=== PATIENT | male | born 1970 | race Caucasian/White ===

== ENCOUNTER 2017-02-13 12:00 | Inpatient (IN) | payer BC, OTHER ==
[~2017-02-13] VITALS: Ht 182.9 cm; Wt 63.5 kg
[2017-02-13 12:30] VITALS: BP 142/109
[2017-02-13] MEDS ORDERED: LOPERAMIDE HCL 2 MG CAPSULE PO PRN ×2 (12:30)
[2017-02-13] MEDS ORDERED: HYDROXYZINE PAMOATE 25 MG CAPSULE PO PRN (12:30)
[2017-02-13] MEDS ORDERED: DICYCLOMINE HCL 20 MG TABLET PO PRN (12:30)
[2017-02-13] MEDS ORDERED: MAGNESIUM HYDROXIDE 30 ML LIQUID UDC PO PRN (12:30)
[2017-02-13] MEDS ORDERED: ACETAMINOPHEN 325 MG TABLET PO PRN (12:30)
[2017-02-13] MEDS ORDERED: IBUPROFEN 400 MG TABLET PO PRN (12:30)
[2017-02-13] MEDS ORDERED: MAG HYDROX/AL HYDROX/SIMETH 30 ML LIQUID UDC PO PRN (12:30)
[2017-02-13] MEDS ORDERED: MIRALAX 17 GM POWD.PACK PO PRN (12:30)
[2017-02-13] MEDS ORDERED: diphenhydrAMINE 50 MG CAPSULE PO PRN (12:30)
[2017-02-13] MEDS ORDERED: LORAZEPAM 1 MG TABLET PO PRN ×2 (12:30)
[2017-02-13] MEDS ORDERED: ONDANSETRON ODT 4 MG TAB.RAPDIS SL PRN (12:30)
[2017-02-13] MEDS ORDERED: ONDANSETRON 4 MG/2 ML VIAL IM PRN (12:30)
[2017-02-13] MEDS ORDERED: CLONIDINE HCL 0.1 MG TABLET PO PRN (12:30)
[2017-02-13] MEDS ORDERED: LORAZEPAM 2 MG/1 ML VIAL IM PRN (12:30)
[2017-02-13] MEDS ORDERED: THIAMINE HCL 200 MG/2 ML VIAL IM ONE (12:30)
--- NOTE | 2017-02-13 12:30 | NUR ---
ADMISSION NOTE STATUS- FULL CODE ALLERGY-NKDA/NKFA HEIGHT-6"0 WEIGHT-140IBS PCP-KIARA RODRIGUEZ [facility] [place]- DEPRESSION, SEIZURE IN 1999 FROM LOW BLOOD SUGAR VITAL SIGNS-B/P 142/109,HR-105,SPO2-98%,RR-20,TEMP-97.9,PAIN-0/10 CIWA-19 Pt is a 46 year old male admitted to [facility] on 02/13/17 at 1230. Pt is under care of Dr. Keller for ETOH withdrawal. pt denies any SI/HI ideation. Pt denies being hospitalized in past 30 days. Pt denies chest pain and SOB. Pt brought Nexium with him. Pt reports taking Prozac 40 MG daily at home. Upon skin assessment Skin noted intact. Pt is alert awake oriented x4 and able to answer questions necessary for the admission process. Breathing normal respiration even unlabored. Pt reports smoking 1 pack a day, but trying to quit. Pt reported withdrawal s/s Anxiety, restlessness, unsteady gait, numbness, chills, nausea. SUBSTANCE ABUSE: ETOH(SCOTCH) A Fifth/daily, last used was on 02/12/17 of Fifth. Pt has been using at this rate for last 3 years. pt stated using at age 26. Pt has been oriented to the room and the unit. Pt currently on 1:1 for unsteady gait. All needs have been met. Safety measures in place, Call light within reach. Will cont to monitor.
[2017-02-13] MEDS ORDERED: ESOM20CA PO (13:18)
[2017-02-13] MEDS: LORAZEPAM 1 MG TABLET PO SCH ×3 (13:18→21:14)
--- NOTE | 2017-02-13 13:18 | NUR ---
PRN ZOFRAN Pt c/o of nausea, No emesis, non pharmacological intervention ineffective. Pt medicated with PRN Zofran 4mg SL as ordered. Will cont to monitor and reassess the pt.
[2017-02-13 13:44] LABS: BASOPHILS % (AUTO) 0.4 % (0.0-2.0); EOSINOPHILS # (AUTO) 0.1 K/uL (0.0-0.7); EOSINOPHILS % (AUTO) 0.7 % (0.0-7.0); HEMATOCRIT 44.7 % (36.7-47.1); HEMOGLOBIN 15.5 g/dL (12.5-16.3); LYMPHOCYTES # (AUTO) 0.9 K/uL (20.0-40.0); LYMPHOCYTES % (AUTO) 10.7 % (20.5-51.5); MEAN CORPUSCULAR HEMOGLOBIN 35.3 uug (23.8-33.4); MEAN CORPUSCULAR HGB CONC 35 g/dL (32.5-36.3); MEAN CORPUSCULAR VOLUME 101.8 fL (73.0-96.2); MONOCYTES # (AUTO) 0.8 K/uL (2.0-10.0); MONOCYTES % (AUTO) 9.3 % (0.0-11.0); NEUTROPHILS # (AUTO) 6.3 K/uL (1.8-8.9); NEUTROPHILS % (AUTO) 78.9 % (38.5-71.5); PLATELET COUNT (AUTO) 119 K/uL (152-348); RED BLOOD CELL COUNT(AUTO) 4.39 MIL/uL (4.06-5.63); RED CELL DISTRIBUTION WIDTH 13.2 % (12.1-16.2); WHITE BLOOD COUNT (AUTO) 8.1 K/uL (3.6-10.2)
[2017-02-13 13:47] LABS: ALANINE AMINOTRANSFERASE 52 U/L (16-63); ALBUMIN 4.3 g/dL (3.4-5.0); ALKALINE PHOSPHATASE 61 U/L (50-136); AMYLASE 62 U/L (25-115); ASPARTATE AMINOTRANSFERASE 69 U/L (15-37); BILIRUBIN,TOTAL 1.3 mg/dL (0.2-1.0); CALCIUM 9.5 mg/dL (8.5-10.1); CARBON DIOXIDE 27 mmol/L (21-32); CHLORIDE 95 mmol/L (98-107); CREATININE 0.7 mg/dL (0.6-1.3); GFR 121 mL/min (>60); GLUCOSE 98 mg/dL (74-106); LIPASE 350 U/L (73-393); MAGNESIUM 1.6 mg/dL (1.8-2.4); POTASSIUM 3.7 mmol/L (3.5-5.1); SODIUM SERUM 134 mmol/L (136-145); TOTAL PROTEIN, SERUM 7.9 g/dL (6.4-8.2); UREA NITROGEN, BLOOD 8 mg/dL (7-18)
--- NOTE | 2017-02-13 13:48 | NUR ---
REASSESSMENT Pt reported medication effective nausea improved.
[2017-02-13 13:57] LABS: ETHANOL < 3 MG/DL (0-0)
[2017-02-13 13:59] LABS: *AMPHETAMINE, URINE NEGATIVE (NEGATIVE); *BARBITURATE, URINE NEGATIVE (NEGATIVE); *CANNABINOID, URINE NEGATIVE (NEGATIVE); *COCCAINE, URINE NEGATIVE (NEGATIVE); *OPIATE, URINE NEGATIVE (NEGATIVE); *PHENCYCLIDINE SCREEN,URINE NEGATIVE (NEGATIVE)
[2017-02-13] MEDS ORDERED: MAGNESIUM OXIDE 400 MG TABLET PO ONE (14:00)
[2017-02-13 14:14] LABS: HIV-1 p24 ANTIGEN NON REACTIVE (NONREACTIVE); HIV-1/2 ANTIBODY NON REACTIVE (NONREACTIVE)
[2017-02-13 14:16] LABS: FOLIC ACID 17.4 NG/ML (8.6-58.9)
[2017-02-13 15:21] LABS: THYROID STIMULATING HORMONE 2.333 mIU/mL (0.358-3.740)
[2017-02-13 16:00] VITALS: BP 125/91
--- NOTE | 2017-02-13 19:19 | NUR ---
END OF SHIFT NOTE Gave report to night nurse, 46 year old male admitted for ETOH withdrawal. Full code, NKA/Regular diet. Pt with PMH of depression. Pt reported using of ETOH(SCOTCH) A Fifth/ daily, last used was on 02/12/17 of Fifth. Pt has been using at this rate for last 3 years. pt stated using at age 26. Pt currently on 1:1 for unsteady gait. Pt received PRN Zofran for Nausea effective. Vital signs remained stable All needs have been met. Safety measures in place, Call light within reach. Pt endorsed to night nurse in stable condition.
--- NOTE | 2017-02-13 19:30 | NUR ---
START OF SHIFT-- Pt is a 46 year old male admitted for ETOH withdrawal.Received in room,pleasant on approach.A/O X 4. Full code, NKA/Regular diet. Pt with PMH of depression.Skin is intact;breathing even and non labored. Pt currently on 1:1 for unsteady gait. Vital signs have been stable All needs have been met. Last CIWA was 4.Safety measures in place, Call light within reach. Will be monitored.
[2017-02-13 20:00] VITALS: BP 131/93
[2017-02-14] VITALS: BP 121/94
[2017-02-14 04:00] VITALS: BP 122/89
--- NOTE | 2017-02-14 06:39 | NUR ---
END OF SHIFT- Pt is a 46 year old male admitted for ETOH withdrawal.A/O X 4. Full code, NKA/Regular diet. Pt with PMH of depression.Skin is intact;breathing even and non labored. Pt currently on 1:1 for unsteady gait. Vital signs have been stable.No PRN meds given last night;pt slept 7 hrs,fluid intake was 1,000 mls voided x 1 . All needs have been met. Last CIWA was 2.Safety measures in place, Call light within reach. Will be monitored.
--- NOTE | 2017-02-14 07:00 | NUR ---
Start of Shift Notes: Received patient in his room. Alert and oriented x 4. Verbally responsive. Able to make her needs known. Respirations even and unlabored. No SOB noted. Skin warm and dry to touch. Abdomen soft and non-distended with (+) BS in all 4 quadrants. No complains of N/V/D or abdominal discomfort noted. Voids independently. Bladder non-distended. Ambulatory ad juan josé with steady gait. Patient is a 46 year old male admitted for ETOH dependence who was placed on a 5-day Ativan taper as ordered. No adverse reactions noted. Has past medical hx of depression and seizures related to low blood glucose level. On 1:1 due to unsteady gait. FULL CODE. Regular diet. NKA. On fall and seizure precautions. Educated patient on his current plano of care for the day and his medication regimen. All needs met and attended. Safety precautions in place. Will continue to monitor closely.
[2017-02-14 08:00] VITALS: BP 127/81
[2017-02-14 08:13] LABS: HCV AB <0.1 s/co ratio (0.0-0.9); HEPATITIS B CORE AB, IgM Negative (Negative); HEPATITIS B SURFACE AG Negative (Negative)
[2017-02-14] MEDS: FOLIC ACID 1 MG TABLET PO SCH (08:46)
[2017-02-14] MEDS: MULTIVITAMINS,THERAPEUTIC TABLET PO SCH (08:46)
[2017-02-14] MEDS: LORAZEPAM 1 MG TABLET PO SCH ×3 (08:46→20:37)
[2017-02-14] MEDS: FLUOXETINE HCL 20 MG CAPSULE PO SCH (08:46)
[2017-02-14] MEDS: THIAMINE HCL 100 MG TABLET PO SCH (08:46)
--- NOTE | 2017-02-14 08:46 | NUR ---
Mylanta 30cc PO given: Patient noted with complain of GI upset related to acid reflux. Tolerating oral intake. Medicated patient with Mylanta 30 cc PO as ordered. Will monitor for effectiveness.
[2017-02-14] MEDS ORDERED: TUBERCULIN,PURIF.PROT.DERIV. 5 TU/0.1 ML TEST ID ONE (09:00)
[2017-02-14] MEDS ORDERED: FLUO40CA8 PO (09:14)
--- NOTE | 2017-02-14 09:46 | NUR ---
Re-assessment: Per patient, PRN Mylanta was effective in reducing GI upset.
[2017-02-14 12:00] VITALS: BP 126/94
[2017-02-14] MEDS ORDERED: LORAZEPAM 1 MG TABLET PO ONE (12:30)
--- NOTE | 2017-02-14 12:30 | NUR ---
Ativan 1 mg PO x 1 dose given: Orders received from Dr. Keller to administer extra dose of Ativan 1 mg PO at this time due to gross tremors and sweating. HALLIEWA 8.
--- NOTE | 2017-02-14 13:30 | NUR ---
Re-assessment: x1 Ativan order: CIWA 6. Patient noted with less tremors to BUE noted and less sweating.
--- NOTE | 2017-02-14 13:45 | NUR ---
PT Eval: Orders received from MD to start patient on PT therapy due to unsteady gait and poor safety awareness.
--- NOTE | 2017-02-14 14:00 | NUR ---
PT eval: Patient was seen and examined by PT department at this time.
[2017-02-14] MEDS: GABAPENTIN 300 MG CAPSULE PO SCH ×2 (14:18→20:37)
--- NOTE | 2017-02-14 14:19 | NUR ---
New Orders: Patient was started on Gabapentin as ordered for tremors and anxiety. Patient education provided.
[2017-02-14 16:00] VITALS: BP 122/90
--- NOTE | 2017-02-14 18:47 | NUR ---
End of Shift Notes: Patient is a 46 year old male admitted on 02/13/2017 for ETOH dependence who was placed on a 5-day Ativan taper as ordered. No adverse reactions noted. Patient is tolerating taper well. This is patient's first day of his taper. Has past medical hx of depression and seizures related to low blood glucose level. VS monitored closely q 4 hours. No significant abnormalities noted. Withdrawal symptoms were closely monitored. Patient presented with severe gross tremors and sweats. On 1:1 due to gross tremors and unsteady gait. Initial CIWA 11. Last CIWA 5. Per patient, Ativan has been helping him with his withdrawal symptoms. Oral fluids encouraged. Safety precautions in place. Tolerating oral intake well. All needs met and attended. Will continue to monitor closely.
--- NOTE | 2017-02-14 19:55 | NUR ---
START OF SHIFT Received report from day shift nurse. Pt is in his room lying in bed. He is a 46 yo male admitted to [facility] on 02/13 for ETOH Dependence. NKA, full code, regular diet. Pt is A&O x4 and ambulatory with an unsteady gait. He requires assistance ambulating and is ordered a 1:1 for safety. Wheelchair is available as needed. Pt has a PMH of seizure x1 r/t low blood glucose and depression. On admission pt reported drinking ETOH 750mL/day for 31 years. He started a 5 day Ativan taper on 02/13. Pt has moist skin, moderate full body tremors, and an unsteady gait. Ativan taper due tonight. He is cooperative with treatment. Fall and seizure precautions in place. Bed is down with call light in reach.
[2017-02-14 20:00] VITALS: BP 137/96
[2017-02-14] MEDS ORDERED: LORAZEPAM 1 MG TABLET PO PRN ×2 (20:30)
[2017-02-15] VITALS (8 sets, daily range): BP systolic 118–132; BP diastolic 86–102
--- NOTE | 2017-02-15 07:08 | NUR ---
END OF SHIFT Report provided to day shift nurse. Pt is lying in bed watching TV. He is a 46 yo male admitted to [facility] on 02/13 for ETOH Dependence. NKA, full code, regular diet. Pt is A&O x4 and ambulatory with assistance. 1:[address] for safety r/t unsteady gait with a wheelchair available as needed. Pt has a PMH of seizure x1 r/t low blood glucose and depression. On admission pt reported drinking ETOH 750mL/day for 31 years. He started a 5 day Ativan taper on 02/13. Pt has full body tremors. No PRN medications administered. Last CIWA 3. He drank 200mL and slept for 8 hours. Fall and seizure precautions in place. Bed is down with call light in reach.
[2017-02-15 07:16] LABS: BASOPHILS % (AUTO) 0.2 % (0.0-2.0); EOSINOPHILS # (AUTO) 0.2 K/uL (0.0-0.7); EOSINOPHILS % (AUTO) 2.9 % (0.0-7.0); HEMATOCRIT 46.3 % (36.7-47.1); HEMOGLOBIN 16.3 g/dL (12.5-16.3); LYMPHOCYTES % (AUTO) 13.6 % (20.5-51.5); MEAN CORPUSCULAR HEMOGLOBIN 35.8 uug (23.8-33.4); MEAN CORPUSCULAR HGB CONC 35 g/dL (32.5-36.3); MEAN CORPUSCULAR VOLUME 101.6 fL (73.0-96.2); MONOCYTES # (AUTO) 0.6 K/uL (2.0-10.0); MONOCYTES % (AUTO) 7.7 % (0.0-11.0); NEUTROPHILS # (AUTO) 5.9 K/uL (1.8-8.9); NEUTROPHILS % (AUTO) 75.6 % (38.5-71.5); PLATELET COUNT (AUTO) 95 K/uL (152-348); RED BLOOD CELL COUNT(AUTO) 4.55 MIL/uL (4.06-5.63); RED CELL DISTRIBUTION WIDTH 13.1 % (12.1-16.2); WHITE BLOOD COUNT (AUTO) 7.7 K/uL (3.6-10.2)
--- NOTE | 2017-02-15 07:41 | NUR ---
START OF SHIFT NOTE Received report from night nurse, 46 yo male admitted to [facility] on 02/13 for ETOH Dependence. NKA, full code, regular diet. Pt has a PMH of seizure x1 r/t low blood glucose and depression. Pt cont with 1:1 for safety. Pt reported drinking ETOH 750mL/day for 31 years. Pt cont with a 5 day Ativan taper on 02/13. No PRN's given per night nurse, Slept for 8 hours, Last CIWA-3. Currently pt is resting in his room in stable condition. pt still noted with full body tremors. Pt denies any pain at this time. Educate the pt current plan of the day and medications regimen with good verbal understanding Fall and seizure precautions in place, Call light within reach.
[2017-02-15 07:52] LABS: ALBUMIN 4.1 g/dL (3.4-5.0); BILIRUBIN,DIRECT 0.3 mg/dL (0.0-0.2); CREATININE 0.7 mg/dL (0.6-1.3); MAGNESIUM 2.1 mg/dL (1.8-2.4); PHOSPHOROUS 4.7 mg/dL (2.5-4.9); POTASSIUM 4.2 mmol/L (3.5-5.1); TOTAL PROTEIN, SERUM 7.7 g/dL (6.4-8.2)
[2017-02-15] MEDS: MULTIVITAMINS,THERAPEUTIC TABLET PO SCH (08:26)
[2017-02-15] MEDS: GABAPENTIN 300 MG CAPSULE PO SCH ×2 (08:26→14:23)
[2017-02-15] MEDS: LORAZEPAM 1 MG TABLET PO SCH ×4 (08:26→20:21)
[2017-02-15] MEDS: THIAMINE HCL 100 MG TABLET PO SCH (08:26)
[2017-02-15] MEDS: FOLIC ACID 1 MG TABLET PO SCH (08:26)
[2017-02-15] MEDS: FLUOXETINE HCL 20 MG CAPSULE PO SCH (08:27)
[2017-02-15] MEDS: NEXIUM 22.3 MG PO SCH (08:31)
--- NOTE | 2017-02-15 08:33 | NUR ---
ADMINISTERED PNEUMONIA VACCINE Pneumonia vaccine given as ordered, on right deltoid. Injection site clean and dry no s/s of bleeding no swelling noted. Safety measures in place, Call light within reach. Cont with 1:1.
[2017-02-15] MEDS ORDERED: PNEUMOCOCCAL 23-VAL P-SAC VAC 0.5 ML VIAL IM ONE (09:00)
[2017-02-15 09:19] LABS: BAND % (MANUAL) 1 % (0-10); LYMPHOCYTES % (MANUAL) 8 % (20-40); NEUTROPHILS % (MANUAL) 82 % (42-75)
[2017-02-15 09:20] LABS: EOSINOPHILS % (MANUAL) 2 % (0-8); MONOCYTES % (MANUAL) 7 % (2-10)
[2017-02-15 09:21] LABS: PLATELET ESTIMATE DECREASED
[2017-02-15 09:27] LABS: TOXIC GRANULATION 1+
[2017-02-15] MEDS ORDERED: LORAZEPAM 1 MG TABLET PO ONE (13:00)
--- NOTE | 2017-02-15 13:00 | NUR ---
X1 DOSE OF ATIVAN Pt's complaining of anxiety, JORDI noted 8. Seen by MD with new order for x1 dose of Ativan 1 mg. Administered medication as ordered. Will cont o monitor and reassess the pt. Pt cont with 1:1 sitter for unsteady gait. All safety measures in place, Call light within reach.
--- NOTE | 2017-02-15 13:30 | NUR ---
PT VISIT Pt is compliant with physical therapy order and walks with assistance. Pt remains safe.
--- NOTE | 2017-02-15 14:00 | NUR ---
REASSESSMENT Upon reassessment pt verbalized medication effective, anxiety decreased, CIWA noted 3.
--- NOTE | 2017-02-15 18:44 | NUR ---
END OF SHIFT NOTE Gave report to night nurse, 46 year old male admitted for ETOH withdrawal. Full code, NKA/Regular diet. Pt with PMH of depression. Pt reported using of ETOH(SCOTCH) A Fifth/ daily, last used was on 02/12/17 of Fifth. Pt has been using at this rate for last 3 years. pt stated using at age 26. Pt currently on 1:1 for unsteady gait. Pt cont with 5 days Ativan taper tolerating well no ASE noted. Skin intact warm and dry to touch. Pt was given PNA vaccine on right deltoid. Pt also received one time dose of Ativan for anxiety CIWA-3. Vital signs were stable during shift. Pt's total intake 2355ml, voided x4, Last CIWA-2. Pt has physical therapy and walk with PT. All needs have been met. Safety measures in place, Call light within reach. Will endorse pt to night nurse in stable condition.
--- NOTE | 2017-02-15 19:55 | NUR ---
START OF SHIFT Received report from day shift nurse. Pt is in his room watching TV. He is a [address] [facility] on 02/13 for ETOH Dependence. NKA, full code, regular diet. Pt is A&O x4 and ambulatory with an unsteady gait. He is ordered a 1:1 for safety. Pt has a PMH of seizure x1 r/t low blood glucose and depression. Upon admission pt admitted to drinking ETOH 750mL/day for 31 years. Pt is ordered a 5 day Ativan taper that started on 02/13. He is being seen by physical therapy for unsteady gait. Pt has moderate full body tremors and moist skin. Ativan taper due tonight. Fall and seizure precautions in place. Bed is down with call light in reach.
[2017-02-15] MEDS ORDERED: GABAPENTIN 300 MG CAPSULE PO SCH (21:00)
[2017-02-16] VITALS (7 sets, daily range): BP systolic 106–135; BP diastolic 79–106
--- NOTE | 2017-02-16 | NUR ---
0000 CIWA deferred CIWA is ordered Q4HWA.
[2017-02-16] MEDS ORDERED: LORAZEPAM 1 MG TABLET PO ONE (03:00)
--- NOTE | 2017-02-16 03:05 | NUR ---
Communication/One Time Ativan Pt woke up and reports, "I'm feeling a bit disoriented". He is oriented to person, place, and the year but unable to recall the month or situation. Pt remains cooperative. He was reoriented. Full body tremors have increased since before going to sleep. B/P 134/106 and HR 98. CIWA score is 11. Contacted Dr. Keller. [facility] received and [facility] 1:[address] for safety.
--- NOTE | 2017-02-16 04:05 | NUR ---
One time Ativan reassessment Pt is lying in bed resting with eyes closed. Respirations even and unlabored. Pt was woken for vital signs. B/P 106/79 and HR 94. He reports "I feel a little better but I'm still unclear how all this came about". Reoriented patient. Tremors have decreased but are still present and he has mild sweating. CIWA score 7. 1:1 ADMIN ASSISTANT at the bedside. Safety measures in place.
--- NOTE | 2017-02-16 07:05 | NUR ---
END OF SHIFT Report provided to day shift nurse. Pt is lying in bed resting. He is a 46 yo male admitted to [facility] on 02/13 for ETOH Dependence. NKA, full code, regular diet. Pt is A&O x4 and ambulatory with an unsteady gait. He is ordered a 1:1 for safety. Pt has a PMH of seizure x1 r/t low blood glucose and depression. Upon admission pt admitted to drinking ETOH 750mL/day for 31 years. Pt is ordered a 5 day Ativan taper that started on 02/13. He is being seen by physical therapy for unsteady gait. Pt woke up in the night confused and disoriented with full body tremors. Dr. Keller made aware. Ativan One time administered. Pt was able to go back to sleep but continues to have mild confusion when he wakes up. He remained in the bed throughout the shift and only gets up to use the restroom with assistance. Last CIWA was 7. He drank 500mL and slept for 6 hours. Fall and seizure precautions in place. Bed is down with call light in reach.
--- NOTE | 2017-02-16 07:06 | NUR ---
Start of Shift Notes: Received patient in his room. Alert and oriented x 4. Verbally responsive. Able to make his needs known. Respirations even and unlabored. No SOB noted. Skin warm and dry to touch. Abdomen soft and non-distended with (+) BS in all 4 quadrants. No complains of N/V/D or abdominal discomfort noted. Voids independently. Bladder non-distended. Ambulatory ad juan josé with steady gait. Patient is a 46 year old male admitted for ETOH dependence who was placed on a 5-day Ativan taper as ordered. No adverse reactions noted. Has past medical hx of depression and seizures related to low blood glucose level. On 1:1 due to unsteady gait. FULL CODE. Regular diet. NKA. On fall and seizure precautions. Educated patient on his current plano of care for the day and his medication regimen. Encouraged oral fluid intake and encouraged group participation to learn new skills to prevent relapse. All needs met and attended. Safety precautions in place. Will continue to monitor closely.
[2017-02-16 07:48] LABS: BASOPHILS % (AUTO) 0.2 % (0.0-2.0); EOSINOPHILS # (AUTO) 0.2 K/uL (0.0-0.7); EOSINOPHILS % (AUTO) 3.3 % (0.0-7.0); HEMATOCRIT 44.5 % (36.7-47.1); HEMOGLOBIN 15.3 g/dL (12.5-16.3); LYMPHOCYTES # (AUTO) 0.7 K/uL (20.0-40.0); LYMPHOCYTES % (AUTO) 10.2 % (20.5-51.5); MEAN CORPUSCULAR HEMOGLOBIN 35.1 uug (23.8-33.4); MEAN CORPUSCULAR HGB CONC 34 g/dL (32.5-36.3); MONOCYTES # (AUTO) 0.5 K/uL (2.0-10.0); MONOCYTES % (AUTO) 6.9 % (0.0-11.0); NEUTROPHILS # (AUTO) 5.7 K/uL (1.8-8.9); NEUTROPHILS % (AUTO) 79.4 % (38.5-71.5); PLATELET COUNT (AUTO) 92 K/uL (152-348); RED BLOOD CELL COUNT(AUTO) 4.36 MIL/uL (4.06-5.63); RED CELL DISTRIBUTION WIDTH 13.1 % (12.1-16.2); WHITE BLOOD COUNT (AUTO) 7.1 K/uL (3.6-10.2)
[2017-02-16 08:10] LABS: ALANINE AMINOTRANSFERASE 134 U/L (16-63); ALBUMIN 3.8 g/dL (3.4-5.0); ALKALINE PHOSPHATASE 59 U/L (50-136); ASPARTATE AMINOTRANSFERASE 228 U/L (15-37); BILIRUBIN,DIRECT 0.2 mg/dL (0.0-0.2); CALCIUM 9.5 mg/dL (8.5-10.1); CARBON DIOXIDE 30 mmol/L (21-32); CHLORIDE 101 mmol/L (98-107); CREATININE 0.6 mg/dL (0.6-1.3); GFR > 130 mL/min (>60); GLUCOSE 99 mg/dL (74-106); MAGNESIUM 1.9 mg/dL (1.8-2.4); PHOSPHOROUS 4.5 mg/dL (2.5-4.9); POTASSIUM 4.2 mmol/L (3.5-5.1); SODIUM SERUM 138 mmol/L (136-145); TOTAL PROTEIN, SERUM 7.5 g/dL (6.4-8.2); UREA NITROGEN, BLOOD 6 mg/dL (7-18)
[2017-02-16] MEDS: THIAMINE HCL 100 MG TABLET PO SCH (08:21)
[2017-02-16] MEDS: MULTIVITAMINS,THERAPEUTIC TABLET PO SCH (08:21)
[2017-02-16] MEDS: FLUOXETINE HCL 20 MG CAPSULE PO SCH (08:21)
[2017-02-16] MEDS: LORAZEPAM 1 MG TABLET PO SCH ×3 (08:21→20:06)
[2017-02-16] MEDS: FOLIC ACID 1 MG TABLET PO SCH (08:21)
[2017-02-16] MEDS: GABAPENTIN 300 MG CAPSULE PO SCH ×3 (08:21→20:06)
[2017-02-16] MEDS: NEXIUM 22.3 MG PO SCH (08:22)
--- NOTE | 2017-02-16 11:00 | NUR ---
PT: Patient was seen by PT. Compliant with therapy. Safety precautions in place. PT recommends for patient to continue to be on 1:1 due to unsteady gait and poor safety awareness. Patient still requires SBA with walking.
--- NOTE | 2017-02-16 18:45 | NUR ---
End of Shift Notes: Patient is a 46 year old male admitted on 02/13/2017 for ETOH dependence who was placed on a 5-day Ativan taper as ordered. No adverse reactions noted. Patient is tolerating taper well. Has past medical hx of depression and seizures related to low blood glucose level. VS monitored closely q 4 hours. No significant abnormalities noted. Withdrawal symptoms were closely monitored. Patient presented with s gross tremors and sweats. No changes in LOC noted. On PT as ordered. On 1:1 due to gross tremors and unsteady gait. Initial CIWA 7. Last CIWA 5. Per patient, Ativan has been helping him with his withdrawal symptoms. CT scan of the brain without contrast was done today. Results pending. Oral fluids encouraged. Safety precautions in place. Tolerating oral intake well. All needs met and attended. Will continue to monitor closely.
--- NOTE | 2017-02-16 20:00 | NUR ---
START OF SHIFT NOTE RECEIVED PATIENT IN THE ROOM WITH 1:1 DUE TO UNSTEADY GAIT. PATIENT ALERT AND ORIENTED X 4. RESPIRATION EVEN AND UNLABORED. PATIENT NOTED WITH TREMORS, NO N/V. PATIENT ENCOURAGED TO ATTEND GROUPS. PATIENT WITH GOOD APPETITE AND HAD BM TODAY. DENIES ANY PAIN . RECEIVED REPORT FROM DAY SHIFT NURSE. PATIENT DID REQUIRE ANY PRN MEDICATION DURING THE DAY. PATIENT USES W/C AND WALKER TO AMBULATE. CT SCAN OF THE BRAIN WITHOUT CONTRAST WAS DONE TODAY AND RESULT STILL PENDING. SAFETY MEASURES IN PLACE. CALL LIGHT IN REACH. WILL CONTINUE TO MONITOR.
[2017-02-17] VITALS: BP 124/90
[2017-02-17 04:00] VITALS: BP 124/91
--- NOTE | 2017-02-17 07:15 | NUR ---
END OF SHIFT NOTE MONITORED PATIENT THROUGHOUT SHIFT. PATIENT ALERT AND ORIENTED X 4. RESPIRATION EVEN AND UNLABORED. PATIENT CONTINUE ON 1:1 DUE TO UNSTEADY GAIT. PATIENT USES W/C AND WALKER TO AMBULATE. PATIENT REPORTS ANXIETY ,NOTED TREMORS , NO N/V DURING SHIFT. DENIES ANY PAIN. PATIENT COMPLIANT WITH MEDICATIONS BUT REFUSED TO GO TO GROUPS OR MEETINGS. CONTINUE TO ENCOURAGE. PATIENT DID NOT REQUIRE ANY PRN MEDICATION DURING SHIFT. SAFETY MEASURES IN PLACE. CALL LIGHT IN REACH. SLEPT 7 HOURS. FLUID INTAKE OF 300 ML. VOIDED X 4 AND BM X 1. CONTINUE ON ATIVAN TAPER ORDERED , NO ADVERSE REACTION AND TOLERATED WELL. PATIENT LAST CIWA 2. CT SCAN RESULT STILL PENDING . ENDORSE TO NEXT SHIFT.
[2017-02-17 08:00] VITALS: BP 122/93
[2017-02-17 08:08] LABS: BASOPHILS % (AUTO) 0.3 % (0.0-2.0); EOSINOPHILS # (AUTO) 0.3 K/uL (0.0-0.7); EOSINOPHILS % (AUTO) 3.9 % (0.0-7.0); HEMATOCRIT 43.5 % (36.7-47.1); LYMPHOCYTES # (AUTO) 1.1 K/uL (20.0-40.0); LYMPHOCYTES % (AUTO) 13.1 % (20.5-51.5); MEAN CORPUSCULAR HEMOGLOBIN 35.3 uug (23.8-33.4); MEAN CORPUSCULAR HGB CONC 35 g/dL (32.5-36.3); MEAN CORPUSCULAR VOLUME 102.3 fL (73.0-96.2); MONOCYTES # (AUTO) 0.9 K/uL (2.0-10.0); MONOCYTES % (AUTO) 10.3 % (0.0-11.0); NEUTROPHILS # (AUTO) 6.3 K/uL (1.8-8.9); NEUTROPHILS % (AUTO) 72.4 % (38.5-71.5); PLATELET COUNT (AUTO) 118 K/uL (152-348); RED BLOOD CELL COUNT(AUTO) 4.26 MIL/uL (4.06-5.63); RED CELL DISTRIBUTION WIDTH 13.2 % (12.1-16.2); WHITE BLOOD COUNT (AUTO) 8.6 K/uL (3.6-10.2)
[2017-02-17 08:20] LABS: ALBUMIN 3.7 g/dL (3.4-5.0); BILIRUBIN,DIRECT 0.2 mg/dL (0.0-0.2); BILIRUBIN,TOTAL 0.7 mg/dL (0.2-1.0); CALCIUM 9.6 mg/dL (8.5-10.1); CREATININE 0.7 mg/dL (0.6-1.3); MAGNESIUM 1.9 mg/dL (1.8-2.4); PHOSPHOROUS 4.2 mg/dL (2.5-4.9); POTASSIUM 4.2 mmol/L (3.5-5.1); TOTAL PROTEIN, SERUM 7.4 g/dL (6.4-8.2)
[2017-02-17] MEDS: MULTIVITAMINS,THERAPEUTIC TABLET PO SCH (09:10)
[2017-02-17] MEDS: FOLIC ACID 1 MG TABLET PO SCH (09:10)
[2017-02-17] MEDS: LORAZEPAM 1 MG TABLET PO SCH ×2 (09:10→21:20)
[2017-02-17] MEDS: GABAPENTIN 300 MG CAPSULE PO SCH ×3 (09:10→21:21)
[2017-02-17] MEDS: FLUOXETINE HCL 20 MG CAPSULE PO SCH (09:10)
[2017-02-17] MEDS: THIAMINE HCL 100 MG TABLET PO SCH (09:10)
[2017-02-17] MEDS: NEXIUM 22.3 MG PO SCH (09:14)
--- NOTE | 2017-02-17 11:50 | NUR ---
PT: Patient was seen by PT. Compliant with therapy. Safety precautions in place. PT recommends for patient to continue to be on 1:1 at this time due to unsteady gait, tremors and poor safety awareness. Patient still requires SBA with walking, however able to ambulate with FWW.
[2017-02-17 12:00] VITALS: BP 121/66
[2017-02-17 16:00] VITALS: BP 126/96
--- NOTE | 2017-02-17 18:47 | NUR ---
End of Shift Notes: Patient is a 46 year old male admitted on 02/13/2017 for ETOH dependence who was placed on a 5-day Ativan taper as ordered. No adverse reactions noted. Patient is tolerating taper well. Has past medical hx of depression and seizures related to low blood glucose level. VS monitored closely q 4 hours. No significant abnormalities noted. Withdrawal symptoms were closely monitored. Patient presented with gross tremors and sweats. No changes in LOC noted. On PT as ordered. On 1:1 due to gross tremors and unsteady gait. Able to ambulate with FWW with SBA. Initial CIWA 6. Last CIWA 4. Per patient, Ativan has been helping him with his withdrawal symptoms. Oral fluids encouraged. Safety precautions in place. Tolerating oral intake well. All needs met and attended. Will continue to monitor closely.
--- NOTE | 2017-02-17 19:30 | NUR ---
START OF SHIFT NOTE : Pt. is 46 years old male, admitted for ETOH dependence who was placed on a 5-day Ativan taper on 02/14/2017. No adverse reactions noted. Has past medical hx of depression and seizures related to low blood glucose level. On 1:1 due to unsteady gait. FULL CODE. Regular diet. NKA. On fall and seizure precautions. Alert and oriented x 4. Verbally responsive. Able to make his needs known. Respirations even and unlabored. No SOB noted. Skin warm and dry to touch. Abdomen soft and non-distended with (+) BS in all 4 quadrants. No complains of N/V/D or abdominal discomfort noted. Voids independently. Encouraged oral fluid intake and encouraged group participation to learn new skills to prevent relapse Safety measures in place : bed on lowest position with side rails x2 up for safety, call light within reach. Will continue to monitor closely and offer help. Addendum: 02/18/17 at 0651 by SAGE CARRILLO RN Pt remains compliant with the treatment plan. No PRNs were given during my shift. V/S remain WNL. RR=16, even and unlabored, lungs clear upon auscultation, abdomen soft and non- distended. Pt denies nausea, vomiting and diarrhea. LAST CIWA=2 ,COWS=2 at 0400 , IBAAVY=089 ml, voided x 2, slept 6 hours.
[2017-02-17 20:00] VITALS: BP 146/98
[2017-02-17] MEDS: ropiniROLE 0.25 MG TABLET PO SCH (21:20)
[2017-02-18 04:00] VITALS: BP 113/89
--- NOTE | 2017-02-18 07:00 | NUR ---
END OF SHIFT NOTE : Pt. is 46 years old male, admitted for ETOH dependence who was placed on a 5-day Ativan taper on 02/14/2017. No adverse reactions noted. Has past medical hx of depression and seizures related to low blood glucose level. On 1:1 due to unsteady gait. FULL CODE. Regular diet. NKA. On fall and seizure precautions. Alert and oriented x 4. Verbally responsive. Able to make his needs known. Respirations even and unlabored. No SOB noted. Skin warm and dry to touch. Abdomen soft and non-distended with (+) BS in all 4 quadrants. No complains of N/V/D or abdominal discomfort noted. Voids independently. Pt remains compliant with the treatment plan. No PRNs were given during my shift. V/S remain WNL. RR=16, even and unlabored, lungs clear upon auscultation, abdomen soft and non- distended. Pt denies nausea, vomiting and diarrhea. LAST CIWA=2 ,COWS=2 at 0400 , QUFRYY=216 ml, voided x 2, slept 6 hours. Safety measures in place : bed on lowest position with side rails x2 up for safety, call light within reach. Will continue to monitor closely and offer help.
--- NOTE | 2017-02-18 07:44 | NUR ---
BEGINNING OF SHIFT Patient endorsement report received from retail shift supervisor nurse, all pertinent information discussed. Patient with admitting Dx: etoh Dependence with ongoing 5 day ativan taper as ordered, patient currently on completed taper and will be under observation today. Patient slept for 6 hours, with last ciwa score of: 3 as per retail shift supervisor. Patient received no PRNs during retail shift supervisor. Patient continues on 1:1 for unsteady gait and safety precautions. Fall and seizure precautions observed at all times. Patient received awake, alert and oriented x4, educated regarding plan of care for the day and medication regimen with good verbal understanding. will continue to monitor closely. safety measures in place. call light with in reach.
[2017-02-18 07:48] LABS: BASOPHILS % (AUTO) 0.6 % (0.0-2.0); EOSINOPHILS # (AUTO) 0.3 K/uL (0.0-0.7); HEMATOCRIT 44.7 % (36.7-47.1); HEMOGLOBIN 15.1 g/dL (12.5-16.3); LYMPHOCYTES % (AUTO) 12.2 % (20.5-51.5); MEAN CORPUSCULAR HEMOGLOBIN 34.7 uug (23.8-33.4); MEAN CORPUSCULAR HGB CONC 34 g/dL (32.5-36.3); MEAN CORPUSCULAR VOLUME 102.9 fL (73.0-96.2); NEUTROPHILS # (AUTO) 5.7 K/uL (1.8-8.9); NEUTROPHILS % (AUTO) 70.2 % (38.5-71.5); PLATELET COUNT (AUTO) 145 K/uL (152-348); RED BLOOD CELL COUNT(AUTO) 4.34 MIL/uL (4.06-5.63); RED CELL DISTRIBUTION WIDTH 13.1 % (12.1-16.2)
[2017-02-18 08:00] VITALS: BP 124/89
[2017-02-18] MEDS: GABAPENTIN 300 MG CAPSULE PO SCH ×3 (08:15→21:06)
[2017-02-18] MEDS: THIAMINE HCL 100 MG TABLET PO SCH (08:15)
[2017-02-18] MEDS: FOLIC ACID 1 MG TABLET PO SCH (08:15)
[2017-02-18] MEDS: NEXIUM 22.3 MG PO SCH (08:15)
[2017-02-18] MEDS: FLUOXETINE HCL 20 MG CAPSULE PO SCH (08:15)
[2017-02-18] MEDS: ropiniROLE 0.25 MG TABLET PO SCH ×2 (08:15→14:35)
[2017-02-18] MEDS: MULTIVITAMINS,THERAPEUTIC TABLET PO SCH (08:15)
[2017-02-18 08:24] LABS: ALBUMIN 3.8 g/dL (3.4-5.0); BILIRUBIN,DIRECT 0.2 mg/dL (0.0-0.2); BILIRUBIN,TOTAL 0.7 mg/dL (0.2-1.0); CALCIUM 9.7 mg/dL (8.5-10.1); CREATININE 0.7 mg/dL (0.6-1.3); MAGNESIUM 1.9 mg/dL (1.8-2.4); PHOSPHOROUS 4.5 mg/dL (2.5-4.9); POTASSIUM 3.7 mmol/L (3.5-5.1); TOTAL PROTEIN, SERUM 7.7 g/dL (6.4-8.2)
[2017-02-18 12:56] VITALS: BP 128/88
[2017-02-18 16:26] LABS: *AMPHETAMINE, URINE NEGATIVE (NEGATIVE); *BARBITURATE, URINE NEGATIVE (NEGATIVE); *CANNABINOID, URINE NEGATIVE (NEGATIVE); *COCCAINE, URINE NEGATIVE (NEGATIVE); *OPIATE, URINE NEGATIVE (NEGATIVE); *PHENCYCLIDINE SCREEN,URINE NEGATIVE (NEGATIVE)
[2017-02-18 16:42] VITALS: BP 131/80
--- NOTE | 2017-02-18 19:01 | NUR ---
END OF SHIFT Patient with admitting Dx: ETOH dependance and completed 5 day Ativan taper as ordered, well tolerated, no ASE noted, patient completed taper as of 02/17/2017 and continues under close observation. Patient 1:1 continues for safety precautions as per MD orders. Patient encouraged adequate PO fluid intake as tolerated. 0900 patient presented with: fine tremors with ciwa score of: 3. 1300 assessment patient presented with: fine tremors with ciwa score of: 3. 1700 assessment patient presented with: fine tremors with ciwa score of: 3. Detox medication effective at reducing withdrawal symptoms. Patient encouraged to attend group therapies/sessions to learn new coping skills to prevent relapse, noted attending and participating. patient denies SI/HI. Administered no PRNs during shift. Patient is scheduled for discharge tomorrow, noted self motivated towards sobriety. Safety measures in place. call light kept with in reach. Patient endorsed to night warehouse selector nurse, all pertinent information discussed.
--- NOTE | 2017-02-18 19:30 | NUR ---
START OF SHIFT NOTE : Pt. is 46 years old male, admitted for ETOH dependence who was placed on a 5-day Ativan taper on 02/14/2017. No adverse reactions noted. Has past medical hx of depression and seizures related to low blood glucose level. On 1:1 due to unsteady gait. FULL CODE. Regular diet. NKA. On fall and seizure precautions. Alert and oriented x 4. Verbally responsive. Able to make his needs known. Respirations even and unlabored. No SOB noted. Skin warm and dry to touch. Abdomen soft and non-distended with (+) BS in all 4 quadrants. No complains of N/V/D or abdominal discomfort noted. Voids independently. Pt remains compliant with the treatment planV/S remain WNL. RR=16, even and unlabored, lungs clear upon auscultation, abdomen soft and non- distended. Pt denies nausea, vomiting and diarrhea. Safety measures in place : bed on lowest position with side rails x2 up for safety, call light within reach. Will continue to monitor closely and offer help.
[2017-02-18 20:00] VITALS: BP 139/48
[2017-02-18] MEDS ORDERED: ropiniROLE 0.25 MG TABLET PO SCH (21:00)
--- NOTE | 2017-02-19 07:10 | NUR ---
start of shift note: received pt from night worker nurse, pt is in stable condition no s/s of pain or discomfort. pt's discharge is pending D/T MD will reassess pt and no safe discharge location. pt is admitted to [facility] for ETOH withdrawal/dependence. pt completed ativan taper without any A/R. Pt still remains on 1:1 for unsteady gait. Pt's gait improved and continues to be evaluated by PT. will continue to monitor pt for any changes and continue to meet pts needs
--- NOTE | 2017-02-19 07:11 | NUR ---
END OF SHIFT NOTE : Pt. is 46 years old male, admitted for ETOH dependence who was placed on a 5-day Ativan taper on 02/14/2017. No adverse reactions noted. Has past medical hx of depression and seizures related to low blood glucose level. On 1:1 due to unsteady gait. FULL CODE. Regular diet. NKA. On fall and seizure precautions. Alert and oriented x 4. Verbally responsive. Able to make his needs known. Respirations even and unlabored. No SOB noted. Skin warm and dry to touch. Abdomen soft and non-distended with (+) BS in all 4 quadrants. No complains of N/V/D or abdominal discomfort noted. Voids independently. Pt remains compliant with the treatment plan. No PRNs were given during my shift. V/S remain WNL. RR=16, even and unlabored, lungs clear upon auscultation, abdomen soft and non- distended. Pt denies nausea, vomiting and diarrhea. Pt. refused his Nicoderm patch in the evening and wants it after breakfast. wants to see patient BEFORE D/C/ today. UDS taken , report placed to the chart. LAST CIWA=2 at 0400 , [id number]=912 ml, voided x 2, slept 7 hours. Safety measures in place : bed on lowest position with side rails x2 up for safety, call light within reach. Will continue to monitor closely and offer help.
[2017-02-19] MEDS: NICOTINE 7 MG/24HR PATCH TD SCH (09:00)
[2017-02-19 09:50] VITALS: BP 128/68
[2017-02-19] MEDS: FOLIC ACID 1 MG TABLET PO SCH (09:54)
[2017-02-19] MEDS: NEXIUM 22.3 MG PO SCH (09:55)
[2017-02-19] MEDS: ropiniROLE 0.5 MG TABLET PO SCH ×3 (09:55→21:24)
[2017-02-19] MEDS: FLUOXETINE HCL 20 MG CAPSULE PO SCH (09:55)
[2017-02-19] MEDS: GABAPENTIN 300 MG CAPSULE PO SCH ×3 (09:55→21:24)
[2017-02-19] MEDS: MULTIVITAMINS,THERAPEUTIC TABLET PO SCH (09:55)
[2017-02-19] MEDS: THIAMINE HCL 100 MG TABLET PO SCH (09:55)
[2017-02-19 13:30] VITALS: BP 144/78
[2017-02-19 17:28] VITALS: BP 136/82
[2017-02-19] MEDS ORDERED: HYDR-3895 PO (18:46)
[2017-02-19] MEDS ORDERED: THIA100T13 PO (18:46)
[2017-02-19] MEDS ORDERED: ROPI0.5T PO (18:46)
[2017-02-19] MEDS ORDERED: NICO1PAT46 TD (18:46)
[2017-02-19] MEDS ORDERED: Gabapentin PO ×2 (18:46)
[2017-02-19] MEDS ORDERED: Fluoxetine Hcl PO (18:46)
[2017-02-19] MEDS ORDERED: MULT-24 PO (18:46)
[2017-02-19] MEDS ORDERED: Folic Acid PO (18:46)
[2017-02-19] MEDS ORDERED: DIPH50CA37 PO (18:46)
--- NOTE | 2017-02-19 19:07 | NUR ---
end of shift note: pt is in stable condition at this time no s/s of pain or discomfort. pts last ciwa is 3. pt is admitted to [facility] for etoh withdrawal/dependence. pt's discharge is still pending for safe discharge location. pt is improving in gait and daily ADLS. pt is tolerating requip well no A/R noted. pt remains on 1:1 for unsteady gait and safety precautions. will endorse pt to security shift supervisor nurse.
--- NOTE | 2017-02-19 19:30 | NUR ---
START OF SHIFT NOTE : Pt. is 46 years old male, admitted for ETOH dependence who completed his 5-day Ativan taper, started on 02/14/2017. No adverse reactions noted. Has past medical hx of depression and seizures related to low blood glucose level. On 1:1 due to unsteady gait. FULL CODE. Regular diet. NKA. On fall and seizure precautions. Alert and oriented x 4. Verbally responsive. Able to make his needs known. Respirations even and unlabored. No SOB noted. Skin warm and dry to touch. Abdomen soft and non-distended with (+) BS in all 4 quadrants. No complains of N/V/D or abdominal discomfort noted. Voids independently. Encouraged oral fluid intake and encouraged group participation to learn new skills to prevent relapse . Pt. will be D/C tomortrow.Safety measures in place : bed on lowest position with side rails x2 up for safety, call light within reach. Will continue to monitor closely and offer help.
[2017-02-19 20:00] VITALS: BP 135/99
--- NOTE | 2017-02-20 06:44 | NUR ---
END OF SHIFT NOTE : Pt. is 46 years old male, admitted for ETOH dependence who completed Ativan taper on 02/14/2017. No adverse reactions noted. Has past medical hx of depression and seizures related to low blood glucose level. On 1:1 due to unsteady gait. FULL CODE. Regular diet. NKA. On fall and seizure precautions. Alert and oriented x 4. Verbally responsive. Able to make his needs known. Respirations even and unlabored. No SOB noted. Skin warm and dry to touch. Abdomen soft and non-distended with (+) BS in all 4 quadrants. No complains of N/V/D or abdominal discomfort noted. Voids independently. Pt remains compliant with the treatment plan. No PRNs were given during my shift. V/S remain WNL. RR=16, even and unlabored, lungs clear upon auscultation, abdomen soft and non- distended. Pt denies nausea, vomiting and diarrhea. LAST CIWA=2 at 0400 , [id number]=874 ml, voided x 2, slept 7 hours. Safety measures in place : bed on lowest position with side rails x2 up for safety, call light within reach. Will continue to monitor closely and offer help.
--- NOTE | 2017-02-20 07:35 | NUR ---
BEGINNING OF SHIFT Patient endorsement report received from maintenance technician 3rd shift nurse, all pertinent information discussed. Patient with admitting Dx: etoh Dependence patient currently completed taper and will be under observation today. Patient slept for 7 hours, with last ciwa score of: 3 as per maintenance technician 3rd shift. Patient received no PRNs during maintenance technician 3rd shift. Patient continues on 1:1 for safety precautions. Fall and seizure precautions observed at all times. Patient received awake, alert and oriented x4, educated regarding plan of care for the day and medication regimen with good verbal understanding. will continue to monitor closely. safety measures in place. call light with in reach.
[2017-02-20 08:39] VITALS: BP 112/86
[2017-02-20] MEDS: GABAPENTIN 300 MG CAPSULE PO SCH ×2 (08:41→15:26)
[2017-02-20] MEDS: THIAMINE HCL 100 MG TABLET PO SCH (08:41)
[2017-02-20] MEDS: FOLIC ACID 1 MG TABLET PO SCH (08:41)
[2017-02-20] MEDS: FLUOXETINE HCL 20 MG CAPSULE PO SCH (08:41)
[2017-02-20] MEDS: NICOTINE 7 MG/24HR PATCH TD SCH (08:42)
[2017-02-20] MEDS: MULTIVITAMINS,THERAPEUTIC TABLET PO SCH (08:42)
[2017-02-20] MEDS: ropiniROLE 0.5 MG TABLET PO SCH ×2 (08:42→15:26)
[2017-02-20] MEDS: NEXIUM 22.3 MG PO SCH (08:45)
[2017-02-20 13:41] VITALS: BP 118/85
--- NOTE | 2017-02-20 16:05 | NUR ---
DISCHARGE Patient discharged off the unit at 1605, prior to discharge patient in stable condition with vital signs stable, with no s/sx of withdrawal. was educated and provided with teaching regarding all discharge instructions with good verbal understanding. Patient noted self motivated towards sobriety. Patients discharge instructions, home medication and prescriptions were placed in personal duffel bag. patient off the unit at 1605.
== END 2017-02-20 16:04 | disposition other institution (70) | DRG 895 ==
LOC: SRC 12:07
PROVIDERS: ADMIT Internal Medicine; ATTEND Internal Medicine
PROC: HZ2ZZZZ Detoxification Services for Substance Abuse Treatment (ICD-10-PCS; principal; 2017-02-13)
PROC: HZ51ZZZ Individual Psychotherapy for Substance Abuse Treatment, Behavioral (ICD-10-PCS; 2017-02-15)
DX: F10.230 Alcohol dependence with withdrawal, uncomplicated (principal); F33.1 Major depressive disorder, recurrent, moderate; E87.1 Hypo-osmolality and hyponatremia; K70.10 Alcoholic hepatitis without ascites; G62.1 Alcoholic polyneuropathy; Y90.9 Presence of alcohol in blood, level not specified; Z82.49 Family history of ischemic heart disease and other diseases of the circulatory system; Z81.8 Family history of other mental and behavioral disorders; Z81.1 Family history of alcohol abuse and dependence; K29.20 Alcoholic gastritis without bleeding; F17.210 Nicotine dependence, cigarettes, uncomplicated; D69.6 Thrombocytopenia, unspecified; E86.1 Hypovolemia; E87.8 Other disorders of electrolyte and fluid balance, not elsewhere classified; E83.42 Hypomagnesemia; G20 Parkinson's disease
CPT/HCPCS: 36415; 80307; 82746; 83690; 83735; 83921; 84100; 84443; 85025; 86580; 86592; 86705; 86803; 87340; 87806; 90732; 93005; 93880; 97001; 97110; 97116; A4663; A9150; G6040-TC; J3411; J8499; Q0162

== ENCOUNTER 2017-02-16 12:45 | Outpatient (CLI) | payer BC ==
[~2017-02-16 12:45] MED LIST: ESOM20CA PO; FLUO40CA8 PO
== END 2017-02-16 23:59 | disposition home or self-care (01) ==
LOC: CT 12:45
PROVIDERS: ATTEND Internal Medicine
DX: G93.89 Other specified disorders of brain (principal)
CPT/HCPCS: 70450